=== PATIENT | female | born 1950 | race Caucasian/White ===

== ENCOUNTER 2022-07-10 05:31 | Inpatient (IN) | payer MEDICARE ==
[~2022-07-10] VITALS: Ht 157.5 cm; Wt 73.0 kg
[2022-07-10] MEDS ORDERED: nitroGLYCERIN 1gm ointment UD TP ONE (05:50)
[2022-07-10 05:58] LABS: ABG BASE EXCESS -5.8 mmol/L (-2.0-2.0); ABG HCO3 23.7 mmol/L (22.0-26.0); ABG OXYGEN SATURATION 99.2 % (94-97); ABG PCO2 (T) 71.3 mmHg (32.0-45.0); ABG PO2 (T) 226.1 mmHg (75.0-100.0); ALLEN'S TEST POSITIVE; FCOHb 3.6 % (0.0-3.9); FMetHb 0.2 % (0.0-1.5); FO2Hb 95.4 % (94-97); PATIENT TEMPERATURE 36.7; RESPIRATORY RATE 10 b/min; TOTAL HEMOGLOBIN 9.3 G/dl (12.0-16.0)
--- NOTE | 2022-07-10 06:04 | NUR ---
PT WEIGHT IS 160
[2022-07-10 06:11] LABS: BASOPHILS # (AUTO) 0.1 X10'3 (0-0.2); EOSINOPHILS # (AUTO) 0.1 X10'3 (0-0.9); EOSINOPHILS % (AUTO) 1.2 % (0-6); HEMATOCRIT 27.4 % (35.0-45.0); HEMOGLOBIN 8.2 g/dl (12.0-16.0); LYMPHOCYTES # (AUTO) 2.8 X10'3 (1.1-4.8); LYMPHOCYTES % (AUTO) 25.3 % (21-51); MEAN CORPUSCULAR HEMOGLOBIN 23.3 PG (27.0-31.0); MEAN CORPUSCULAR VOLUME 77.8 FL (78-98); MEAN PLATELET VOLUME 8.6 FL (7.4-10.4); MONOCYTES # (AUTO) 1.1 X10'3 (0-0.9); NEUTROPHILS # (AUTO) 6.8 X10'3 (1.8-7.7); NEUTROPHILS % (AUTO) 62.5 % (42-75); PLATELET COUNT 397 X10'3 (140-440); RED BLOOD COUNT 3.52 X10'6 (4.20-5.60); RED CELL DISTRIBUTION WIDTH 20.2 % (11.5-14.5); WHITE BLOOD COUNT 10.9 X10'3 (4.5-11.0)
--- NOTE | 2022-07-10 06:13 | NUR ---
UNABLE TO GET PT HISTORY FROM PT AND NO FAMILY PRESENT YET.
[2022-07-10 06:22] LABS: ALANINE AMINOTRANSFERASE 11 U/L (12-78); ALBUMIN 3.3 G/DL (3.4-5.0); ALBUMIN/GLOBULIN RATIO 0.9 (1.1-1.5); ALKALINE PHOSPHATASE 88 IU/L (46-116); ANION GAP 8 (8-16); ASPARTATE AMINO TRANSFERASE 15 U/L (10-37); BILIRUBIN,TOTAL 0.3 MG/DL (0.1-1.0); BLOOD UREA NITROGEN 7 MG/DL (7-18); CALCIUM 8.3 MG/DL (8.5-10.1); CHLORIDE 103 MMOL/L (99-107); CREATININE 0.78 MG/DL (0.40-0.90); GLUCOSE 300 MG/DL (70-104); POTASSIUM 3.3 MMOL/L (3.5-5.1); SODIUM 139 MMOL/L (135-145); TOTAL CARBON DIOXIDE 28.3 MMOL/L (24-32); TOTAL PROTEIN 6.9 G/DL (6.4-8.2); eGFR 72 ML/MIN
[2022-07-10 06:30] LABS: ANISOCYTOSIS 3+; MICROCYTOSIS 1+; PLATELET ESTIMATE NORMAL
[2022-07-10] MEDS ORDERED: furosemide 40mg/4ml inj IV ONE (06:30)
[2022-07-10 06:31] LABS: HYPOCHROMASIA 1+; LARGE PLATELETS FEW
[2022-07-10 06:32] LABS: SCHISTOCYTES FEW
[2022-07-10] MEDS ORDERED: potassium CL 10mEq/100ml bag 100 ML IV ONE (06:40)
[2022-07-10 07:09] LABS: ABG BASE EXCESS -1.7 mmol/L (-2.0-2.0); ABG HCO3 24.4 mmol/L (22.0-26.0); ABG OXYGEN SATURATION 94.1 % (94-97); ABG PCO2 (T) 47.8 mmHg (32.0-45.0); ABG PO2 (T) 77.2 mmHg (75.0-100.0); ALLEN'S TEST POSITIVE; FCOHb 3.2 % (0.0-3.9); FMetHb 0.2 % (0.0-1.5); FO2Hb 90.9 % (94-97); RESPIRATORY RATE 18 b/min; TOTAL HEMOGLOBIN 8.8 G/dl (12.0-16.0)
--- NOTE | 2022-07-10 07:13 | NUR ---
BiPap set at 12/6 @50%. Pt is tolertating treatment.
[2022-07-10] MEDS ORDERED: acetaminophen 650mg rectal suppository RC PRN (07:40)
[2022-07-10] MEDS ORDERED: ondansetron 4mg rapidly disintigrating tab PO PRN (07:40)
[2022-07-10] MEDS ORDERED: POTASSIUM BICARB 20meq eff tab 20 MEQ TABLET.EFF PO PRN (07:40)
[2022-07-10] MEDS ORDERED: PERFLUTREN PROTEIN-A MICROSPHR (Optison) 0.22 MG/ML 3ML VIAL IV ONE (07:40)
[2022-07-10] MEDS ORDERED: magnesium Cl slow-release 64mg tablet PO PRN (07:40)
[2022-07-10] MEDS ORDERED: potassium CL 10mEq/100ml bag 100 ML IV PRN (07:40)
[2022-07-10] MEDS ORDERED: morphine 2 MG/ML inj. syringe IV PRN ×2 (07:40)
[2022-07-10] MEDS ORDERED: magnesium 4gm in 100ml NS 100 ML IV PRN (07:40)
[2022-07-10] MEDS ORDERED: bisacodyl 10mg suppository rectal RC PRN (07:40)
[2022-07-10] MEDS ORDERED: magnesium hydroxide 30ml (MOM) UD suspension PO PRN (07:40)
[2022-07-10] MEDS ORDERED: ondansetron/PF 4mg/2ml inj IV PRN (07:40)
[2022-07-10] MEDS ORDERED: ipratropium/albuterol 3ml nebule NEB PRN (07:40)
[2022-07-10] MEDS ORDERED: mag hydrox/Alum hydrox/simeth 30ml oral suspension PO PRN (07:40)
[2022-07-10] MEDS ORDERED: magnesium 2GM in 50ml NS 50 ML IV PRN (07:40)
[2022-07-10] MEDS ORDERED: acetaminophen 325mg tablet PO PRN ×2 (07:40)
[2022-07-10] MEDS ORDERED: HYDROcodone/acetaminophen 5mg/325mg tablet PO PRN (07:40)
[2022-07-10] MEDS: K and/or MAG REPLACEMENT MC SCH ×2 (08:00→20:00)
[2022-07-10] MEDS ORDERED: heparin, porcine 5000 units/ml vial SQ SCH (08:00)
[2022-07-10] MEDS: docusate sod 100mg capsule PO SCH ×2 (08:00→21:30)
[2022-07-10] MEDS: furosemide 40mg/4ml inj IV SCH ×2 (08:00→21:31)
[2022-07-10 09:43] LABS: POTASSIUM 3.4 MMOL/L (3.5-5.1)
[2022-07-10] MEDS: POTASSIUM BICARB 20meq eff tab 20 MEQ TABLET.EFF PO PRN ×2 (09:43→15:40)
[2022-07-10] MEDS ORDERED: ipratropium/albuterol 3ml nebule NEB SCH (11:00)
--- NOTE | 2022-07-10 11:15 | NUR ---
Placed pt in isolation due to +covid results.
[2022-07-10] MEDS ORDERED: REMDESIVIR INJ 200 MG in normal saline 100ml IV soln 100 ML IV ONE (14:45)
[2022-07-10] MEDS ORDERED: ALBUTEROL INHALER 1 PUFF/90 MCG INHALation IH SCH (15:00)
[2022-07-10 15:26] LABS: C-REACTIVE PROTEIN 0.65 MG/DL (0.0-0.5)
[2022-07-10 15:43] LABS: D-DIMER 4.38 MG/L FEU (0-0.50)
[2022-07-10] MEDS: ALBUTEROL INHALER 1 PUFF/90 MCG INHALation IH SCH ×3 (16:00→23:37)
[2022-07-10] MEDS ORDERED: iohexol 350MG/ML 100ml bottle IV ONE (16:09)
--- NOTE | 2022-07-10 16:45 | NUR ---
Pt returned from CT very SOB. She was unable to complete CT due to not being able to lay flat.
--- NOTE | 2022-07-10 17:00 | NUR ---
Placed back on BiPap. Given MS for comfort.
[2022-07-10] MEDS: HYDROcodone/acetaminophen 10/325mg tab PO PRN (17:25)
[2022-07-10] MEDS: LORazepam 0.5 MG tablet PO PRN (17:25)
[2022-07-10] MEDS ORDERED: THIA100T70 PO (19:19)
[2022-07-10] MEDS ORDERED: ASPI-1071 PO (19:19)
[2022-07-10] MEDS ORDERED: WARF3TAB56 PO (19:19)
[2022-07-10] MEDS ORDERED: MAGN400T56 PO (19:19)
[2022-07-10] MEDS ORDERED: METO-384 PO (19:19)
[2022-07-10] MEDS ORDERED: PREG225C7 PO (19:19)
[2022-07-10] MEDS ORDERED: LEVO75TA7 PO (19:19)
[2022-07-10] MEDS ORDERED: FURO40TA4 PO (19:19)
[2022-07-10] MEDS ORDERED: FOLI0.8T3 PO (19:19)
[2022-07-10] MEDS ORDERED: temazepam 15mg capsule PO PRN (21:00)
[2022-07-10] MEDS: DEXAMETHASONE 6 MG TABLET PO SCH (21:30)
[2022-07-11 01:00] VITALS: BP 139/75
[2022-07-11] MEDS: ALBUTEROL INHALER 1 PUFF/90 MCG INHALation IH SCH ×6 (04:00→23:59)
[2022-07-11 06:00] VITALS: BP 157/91
--- NOTE | 2022-07-11 06:17 | NUR ---
Problems reprioritized. Patient report given, questions answered & plan of care reviewed with Kaley ALEX. Addendum: 07/11/22 at 0618 by India Light RN Amended: Links added.
[2022-07-11 06:34] LABS: BASOPHILS % (AUTO) 0.2 % (0-1); EOSINOPHILS % (AUTO) 0 % (0-6); HEMATOCRIT 24.1 % (35.0-45.0); HEMOGLOBIN 7.6 g/dl (12.0-16.0); LYMPHOCYTES # (AUTO) 0.3 X10'3 (1.1-4.8); LYMPHOCYTES % (AUTO) 5.8 % (21-51); MEAN CORPUSCULAR HEMOGLOBIN 23.3 PG (27.0-31.0); MEAN CORPUSCULAR HGB CONC 31.4 g/dL (33.0-36.5); MEAN CORPUSCULAR VOLUME 74.1 FL (78-98); MEAN PLATELET VOLUME 8.2 FL (7.4-10.4); MONOCYTES # (AUTO) 0.1 X10'3 (0-0.9); MONOCYTES % (AUTO) 2.7 % (2-12); NEUTROPHILS # (AUTO) 4.8 X10'3 (1.8-7.7); NEUTROPHILS % (AUTO) 91.3 % (42-75); PLATELET COUNT 265 X10'3 (140-440); RED BLOOD COUNT 3.25 X10'6 (4.20-5.60); RED CELL DISTRIBUTION WIDTH 20.2 % (11.5-14.5); WHITE BLOOD COUNT 5.3 X10'3 (4.5-11.0)
[2022-07-11 06:38] LABS: D-DIMER 2.29 MG/L FEU (0-0.50)
[2022-07-11 06:40] LABS: ALANINE AMINOTRANSFERASE 15 U/L (12-78); ALBUMIN 3.2 G/DL (3.4-5.0); ALBUMIN/GLOBULIN RATIO 0.9 (1.1-1.5); ALKALINE PHOSPHATASE 81 IU/L (46-116); ANION GAP 12 (8-16); ASPARTATE AMINO TRANSFERASE 19 U/L (10-37); BILIRUBIN,TOTAL 0.4 MG/DL (0.1-1.0); BLOOD UREA NITROGEN 9 MG/DL (7-18); BUN/CREATININE RATIO 13.2 (6.6-38.0); CALCIUM 8.8 MG/DL (8.5-10.1); CHLORIDE 105 MMOL/L (99-107); CREATININE 0.68 MG/DL (0.40-0.90); GLUCOSE 134 MG/DL (70-104); LACTATE DEHYDROGENASE 231 U/L (81-234); MAGNESIUM 2.1 MG/DL (1.5-2.4); POTASSIUM 4.5 MMOL/L (3.5-5.1); SODIUM 145 MMOL/L (135-145); TOTAL CARBON DIOXIDE 28.1 MMOL/L (24-32); TOTAL PROTEIN 6.7 G/DL (6.4-8.2); eGFR 85 ML/MIN
[2022-07-11 07:22] LABS: ANISOCYTOSIS 3+; MICROCYTOSIS 1+; PLATELET ESTIMATE NORMAL
[2022-07-11 07:23] LABS: POIKILOCYTOSIS FEW; POLYCHROMASIA FEW; STOMATOCYTES 1+
[2022-07-11] MEDS: K and/or MAG REPLACEMENT MC SCH ×2 (08:00→20:00)
[2022-07-11] MEDS: furosemide 40mg/4ml inj IV SCH ×3 (08:13→21:08)
[2022-07-11] MEDS: REMDESIVIR INJ 100 MG in normal saline 100ml IV soln 100 ML IV SCH (08:13)
[2022-07-11] MEDS: LORazepam 0.5 MG tablet PO PRN (08:13)
[2022-07-11] MEDS: DEXAMETHASONE 6 MG TABLET PO SCH ×2 (08:13→21:08)
[2022-07-11] MEDS: docusate sod 100mg capsule PO SCH ×2 (08:13→21:07)
[2022-07-11] MEDS: CefTRIAXone/D5W-Rocephin 1gm 50 ML IV SCH (08:20)
--- NOTE | 2022-07-11 10:47 | NUR ---
Paged Dr. Fontaine regarding pts lactic of 4.3. PAGER ID: [phone] MESSAGE: [phone], Misbah Mc. Pts lactic acid came back 4.3. Kaley [facility] [id number].
[2022-07-11 10:49] LABS: APTT 30 SECONDS (22-32)
[2022-07-11 11:00] VITALS: BP 157/94
[2022-07-11] MEDS: aspirin 81mg, enteric-coated 1 TAB TABLET.DR PO SCH (11:11)
[2022-07-11] MEDS: thiamine 100mg tablet PO SCH (11:11)
[2022-07-11] MEDS: azithromycin 250mg tablet PO SCH (11:26)
[2022-07-11] MEDS: magnesium oxide 400mg tablet PO SCH (11:26)
[2022-07-11] MEDS: pregabalin 75mg capsule PO SCH ×2 (11:27→21:08)
[2022-07-11 15:00] VITALS: BP 199/77
[2022-07-11] MEDS ORDERED: normal saline 1000ml 1,000 ML IVB ONE (15:15)
[2022-07-11] MEDS: folic acid 0.4mg tablet PO SCH (15:34)
[2022-07-11] MEDS: HYDROcodone/acetaminophen 10/325mg tab PO PRN ×2 (17:43→22:35)
--- NOTE | 2022-07-11 19:08 | NUR ---
Patient in room PCU 3011. I have received report from Kaley ALEX and had the opportunity to ask questions and assume patient care. Pt is laying in bed watching tv. Pt has bolus IV fluids running in piv in L ac. No s/s of infiltration or c/o pain to the site. Pt on RA. No s/s of distress. Pt has c/o pain. Please see interventions. BLL, call light within reach, frequently used items in reach, freuqent rounding, loss prevention consultant socks on, sitter at bedside. Will continue to monitor.
[2022-07-11] MEDS ORDERED: warfarin 3mg tablet PO SCH (21:00)
--- NOTE | 2022-07-11 21:24 | NUR ---
Pts PIV to RAC became infiltrated. Pt had c/o pain to site. PIV removed, tip intact. Will attempt to place new PIV. Pt stabel no s/s of distress. BLL, call light wihtin reach, frequently used items in reach, frequent rounding, sitter at bed side. Will continue to monitor.
[2022-07-11 22:00] VITALS: BP 104/61
[2022-07-12] MEDS: HYDROcodone/acetaminophen 10/325mg tab PO PRN ×3 (03:01→12:10)
[2022-07-12] MEDS: ALBUTEROL INHALER 1 PUFF/90 MCG INHALation IH SCH ×3 (03:56→12:29)
--- NOTE | 2022-07-12 05:43 | NUR ---
Primary nurse attempted to place two PIVs, with no success. Secondary nurse attempted to place PIV x2 with no results. CRN made aware. Will follow up with day shift nurse. BLL, call light within reach, frequently used items in reach, frequent rounding, sitter at bed side. Will continue to monitor.
[2022-07-12 06:00] VITALS: BP 115/60
--- NOTE | 2022-07-12 06:39 | NUR ---
Problems reprioritized. Patient report given, questions answered & plan of care reviewed with Emely Green RN.
[2022-07-12 06:42] LABS: BASOPHILS % (AUTO) 0.1 % (0-1); EOSINOPHILS % (AUTO) 0 % (0-6); HEMATOCRIT 24.2 % (35.0-45.0); HEMOGLOBIN 7.5 g/dl (12.0-16.0); LYMPHOCYTES # (AUTO) 0.4 X10'3 (1.1-4.8); MEAN CORPUSCULAR VOLUME 74.1 FL (78-98); MEAN PLATELET VOLUME 8.7 FL (7.4-10.4); MONOCYTES # (AUTO) 0.4 X10'3 (0-0.9); MONOCYTES % (AUTO) 6.5 % (2-12); NEUTROPHILS % (AUTO) 87.4 % (42-75); PLATELET COUNT 260 X10'3 (140-440); RED BLOOD COUNT 3.26 X10'6 (4.20-5.60); RED CELL DISTRIBUTION WIDTH 20.3 % (11.5-14.5); WHITE BLOOD COUNT 6.9 X10'3 (4.5-11.0)
[2022-07-12 06:43] LABS: D-DIMER 1.79 MG/L FEU (0-0.50)
[2022-07-12 06:52] LABS: ALANINE AMINOTRANSFERASE 15 U/L (12-78); ALBUMIN 3.1 G/DL (3.4-5.0); ALBUMIN/GLOBULIN RATIO 0.9 (1.1-1.5); ALKALINE PHOSPHATASE 75 IU/L (46-116); ANION GAP 8 (8-16); ASPARTATE AMINO TRANSFERASE 30 U/L (10-37); BILIRUBIN,TOTAL 0.4 MG/DL (0.1-1.0); BLOOD UREA NITROGEN 16 MG/DL (7-18); C-REACTIVE PROTEIN 1.78 MG/DL (0.0-0.5); CALCIUM 8.6 MG/DL (8.5-10.1); CHLORIDE 104 MMOL/L (99-107); CREATININE 0.64 MG/DL (0.40-0.90); GLUCOSE 123 MG/DL (70-104); LACTATE DEHYDROGENASE 278 U/L (81-234); MAGNESIUM 2.4 MG/DL (1.5-2.4); POTASSIUM 4.3 MMOL/L (3.5-5.1); SODIUM 140 MMOL/L (135-145); TOTAL CARBON DIOXIDE 28.3 MMOL/L (24-32); TOTAL PROTEIN 6.7 G/DL (6.4-8.2); eGFR > 90 ML/MIN
[2022-07-12] MEDS ORDERED: levoTHYROXINE 75mcg tablet PO SCH (08:00)
[2022-07-12] MEDS: docusate sod 100mg capsule PO SCH (08:00)
[2022-07-12] MEDS ORDERED: metoprolol succinate 25mg (24-HOUR) SR. Tablet PO SCH (08:00)
[2022-07-12] MEDS ORDERED: azithromycin 250mg tablet PO SCH (08:00)
[2022-07-12] MEDS: K and/or MAG REPLACEMENT MC SCH (08:00)
[2022-07-12] MEDS: REMDESIVIR INJ 100 MG in normal saline 100ml IV soln 100 ML IV SCH (08:00)
[2022-07-12] MEDS: CefTRIAXone/D5W-Rocephin 1gm 50 ML IV SCH (08:00)
[2022-07-12] MEDS: furosemide 40mg/4ml inj IV SCH (08:00)
[2022-07-12] MEDS: pregabalin 75mg capsule PO SCH (08:08)
[2022-07-12] MEDS: folic acid 0.4mg tablet PO SCH (08:09)
[2022-07-12] MEDS: azithromycin 250mg tablet PO SCH (08:09)
[2022-07-12] MEDS: DEXAMETHASONE 6 MG TABLET PO SCH (08:10)
[2022-07-12] MEDS: magnesium oxide 400mg tablet PO SCH (08:10)
[2022-07-12] MEDS: thiamine 100mg tablet PO SCH (08:10)
[2022-07-12] MEDS: aspirin 81mg, enteric-coated 1 TAB TABLET.DR PO SCH (08:10)
[2022-07-12 11:00] VITALS: BP 124/80
[2022-07-12] MEDS ORDERED: ALBU6.7H9 IH (11:24)
[2022-07-12] MEDS ORDERED: DEXA4TAB67 PO ×2 (11:24)
--- NOTE | 2022-07-12 14:31 | NUR ---
Pt. discharged with in private vehicle w.portable O2 and wheelchair. Pt. axox3, discharge teaching given to both pt. and on discharge. Belongings with patient at the time of departure, vital signs stable.
[2022-07-13] MEDS ORDERED: LEVO750T68 PO (09:44)
== END 2022-07-12 13:55 | disposition home health service (06) | DRG 871 ==
LOC: ER 05:33 → EDBD 07:46 → UNDOADMIN 07:46 → ED HOLD 07:46 → PCU 3S 07-11 01:43
PROVIDERS: ADMIT Family Medicine; ATTEND Family Medicine
PROC: 5A09357 Assistance with Respiratory Ventilation, Less than 24 Consecutive Hours, Continuous Positive Airway Pressure (ICD-10-PCS; principal; 2022-07-10)
PROC: XW033E5 Introduction of Remdesivir Anti-infective into Peripheral Vein, Percutaneous Approach, New Technology Group 5 (ICD-10-PCS; 2022-07-10)
DX: A41.89 Other specified sepsis (principal); G93.41 Metabolic encephalopathy; I50.33 Acute on chronic diastolic (congestive) heart failure; U07.1 COVID-19; J12.82 Pneumonia due to coronavirus disease 2019; J96.21 Acute and chronic respiratory failure with hypoxia; J96.22 Acute and chronic respiratory failure with hypercapnia; E87.2 Acidosis; I69.354 Hemiplegia and hemiparesis following cerebral infarction affecting left non-dominant side; J44.0 Chronic obstructive pulmonary disease with (acute) lower respiratory infection; D64.9 Anemia, unspecified; E03.9 Hypothyroidism, unspecified; E87.6 Hypokalemia; G25.81 Restless legs syndrome; R47.1 Dysarthria and anarthria; I25.10 Atherosclerotic heart disease of native coronary artery without angina pectoris; Z79.82 Long term (current) use of aspirin; Z79.01 Long term (current) use of anticoagulants; Z79.899 Other long term (current) drug therapy; Z87.891 Personal history of nicotine dependence; Z90.710 Acquired absence of both cervix and uterus; Z92.3 Personal history of irradiation; Z95.1 Presence of aortocoronary bypass graft; Z99.3 Dependence on wheelchair; Z99.81 Dependence on supplemental oxygen
CPT/HCPCS: 36415; 36600; 71045; 80053; 82728; 82803; 83605; 83615; 83735; 83880; 84132; 84145; 84443; 84484; 85008; 85018; 85025; 85379; 85610; 85730; 86140; 87040; 87081; 87635; 93306; 94640; 94660; 94760; 99285; A4314; A4615; G0378; J0696; J1940; J2270; J3480; J3490; J7030; J7040; J8540; Q9967